=== PATIENT | male | born 1960 | race Caucasian/White ===

== ENCOUNTER → 2019-07-09 08:26 | Outpatient (BNVA) | payer SELFPAY | PROVIDERS: PCP Nurse Practitioner Family; Visit Provider Nurse Practitioner Family | DX: R39.9 Unspecified symptoms and signs involving the genitourinary system (principal); M79.89 Other specified soft tissue disorders; W57.XXXA Bitten or stung by nonvenomous insect and other nonvenomous arthropods, initial encounter; I82.409 Acute embolism and thrombosis of unspecified deep veins of unspecified lower extremity; M79.605 Pain in left leg; B35.1 Tinea unguium; R53.83 Other fatigue; R31.9 Hematuria, unspecified | CPT/HCPCS: 80053; 81000; 87077; 87086; 87186 ==

== ENCOUNTER → 2019-07-29 13:32 | Outpatient (BNVA) | payer SELFPAY | PROVIDERS: PCP Nurse Practitioner Family; Visit Provider Nurse Practitioner Family | DX: E87.1 Hypo-osmolality and hyponatremia (principal); N39.0 Urinary tract infection, site not specified; L03.90 Cellulitis, unspecified | CPT/HCPCS: 80048; 80053; 81000; 87077; 87086; 87186 ==

== ENCOUNTER → 2019-09-17 16:26 | Outpatient (BNVA) | payer SELFPAY | PROVIDERS: PCP Nurse Practitioner Family; Visit Provider Nurse Practitioner Family | DX: R23.2 Flushing (principal) | CPT/HCPCS: 80048; 84403; 85025 ==

== ENCOUNTER → 2019-09-23 13:31 | Outpatient (BNVA) | payer SELFPAY | PROVIDERS: PCP Nurse Practitioner Family; Visit Provider Nurse Practitioner Family | DX: R53.83 Other fatigue (principal); E87.1 Hypo-osmolality and hyponatremia | CPT/HCPCS: 80048; 84443 ==

== ENCOUNTER → 2019-10-07 09:28 | Outpatient (BNVA) | payer SELFPAY | PROVIDERS: PCP Nurse Practitioner Family; Visit Provider Nurse Practitioner Family | DX: N30.00 Acute cystitis without hematuria (principal); E87.1 Hypo-osmolality and hyponatremia; G62.9 Polyneuropathy, unspecified | CPT/HCPCS: 81000 ==

== ENCOUNTER 2019-10-16 10:49 | Emergency (ER) | payer SELFPAY ==
[2019-10-16 11:44] VITALS: BP 142/88; PULSE 89; RESP 20; TEMP 36.7; O2SAT 96; BMI 23.0
[2019-10-16 13:26] LABS: Basophils % 0.4 %; Eosinophils # 0.1 10^3/uL (0.0-0.8); Eosinophils % 0.9 %; Hematocrit 45.9 % (42.0-52.0); Hemoglobin 15.7 g/dL (11.7-16.6); Lymphocytes # 1.7 10^3/uL (0.8-4.8); Lymphocytes % 21.6 %; Mean Corpuscular HGB Conc 34.2 g/dL (30.0-36.0); Mean Corpuscular Hemoglobin 31.5 pg (28.0-34.0); Mean Platelet Volume 8.9 fL (7.4-10.4); Monocytes # 0.6 10^3/uL (0.2-0.9); Monocytes % 7.5 %; Neutrophils # 5.36 10^3/uL (1.8-7.7); Neutrophils % 69.5 %; Nucleated Red Blood Cells % 0 %; Platelet Count 264 10^3/cmm (130-400); Red Blood Count 4.99 10^6/uL (4.1-5.3); Red Cell Distribution Width 13.8 % (12.1-15.1); White Blood Count 7.7 10^3/uL (4.0-10.0)
--- NOTE | 2019-10-16 13:58 | ED_ITS ---
HPI - Male Genitourinary General: Chief complaint: Urogenital-Male Stated complaint: abd pain/back pain Time Seen by Provider: 10/16/19 13:58 Source: patient Mode of arrival: ambulatory Limitations: no limitations History of Present Illness: HPI Narrative: Patient is a 59-year-old male who presents to ED today with a main complaint of trouble urinating. Patient tells me symptoms of been present over the past week or so. He was evaluated at [facility] on 10/10 and had labs, UA, CT of his abdomen and pelvis performed. He was discharged home with a prescription for Keflex for UTI. Patient tells me he does have a history of BPH. He has never seen a urologist previously. Patient tells me he was able to urinate while waiting in the waiting room. He is not complaining of dysuria, penile discharge, testicular pain/swelling. He is not complaining of abdominal pain or flank pain at this time. No fevers. Onset (ago): day(s) Duration: constant Associated symptoms: Deny nausea or vomiting Review of Systems Const: Denies: fever(s), chills, body aches, fatigue or malaise Card: Denies: chest pain Resp: Denies: dyspnea GI: Denies: abdominal pain, nausea, vomiting or diarrhea : Reports: difficulty urinating, urinary dribbling and difficulty starting urination; Denies: flank pain, urinary frequency, urinary urgency, urinary hesitancy, genital pain, genital lesions, penile discharge, testicular pain, testicular mass or scrotal swelling Musc: Denies: neck pain or back pain Skin/Breast: Denies: rash Neuro: Denies: headache(s), numbness in extremities, weakness in extremities or sensory changes ON LICENSE OF [facility] ED PFSH: Medical History (Updated 10/16/19 @ 17:06 by BARBARA Barclay) Neuropathy Social History Smoking and tobacco status: current every day smoker Physical Exam Const: COMMON NORMALS: patient oriented x3, no limitations and alert GENERAL APPEARANCE: cooperative and disheveled ORIENTATION/CONSCIOUSNESS: Yes oriented to person, Yes oriented to place and Yes oriented to time HENMT: COMMON NORMALS: normocephalic and atraumatic HEAD & SCALP: normocephalic and atraumatic Resp: COMMON NORMALS: normal respiratory effort and clear to auscultation bilaterally AUSCULTATION: clear to auscultation bilaterally Cardio: COMMON NORMALS: regular rate and regular rhythm RATE: regular rate RHYTHM: regular rhythm GI: COMMON NORMALS: Normal to inspection, nondistended, normoactive bowel sounds present, Soft to palpation, non-tender, No hepatosplenomegaly present and no masses PALPATION: Yes Soft to palpation and Yes No hepatosplenomegaly present : COMMON NORMALS: Yes no CVA tenderness BLADDER/KIDNEY EXAM: Yes no CVA tenderness Back/Pelvis: COMMON NORMALS: no CVA tenderness Extremity: OTHER: pts L LE is swollen compared to R; he has redness to the lateral edge of foot; DP/PT pulses intact and equal bilaterally Neuro: COMMON NORMALS: patient oriented x3, moves all extremities, no focal motor deficits and no sensory deficits noted SENSORIUM/ORIENTATION: Yes alert, Yes oriented to person, Yes oriented to place and Yes oriented to time Course ED course: Records from [facility] were obtained for patient's visit on 10/10. It appears at that visit patient was complaining of bilateral flank pain. His UA was not suspicious for a UTI however due to the right flank pain they placed him on Keflex. Remainder of patient's labs looked okay. Sodium was mildly low at 126. CT abdomen/pelvis without contrast showing left renal cyst. No hydronephrosis. Sequela of chronic pancreatitis. Gallbladder sludge and/or noncalcified stones. Mild hepatomegaly and small left lobe cyst. Moderate fecal burden throughout the colon which may reflect constipation. Vital Signs: Vital signs: Vital Signs Temperature 98.7 F 10/16/19 17:09 Pulse Rate 92 10/16/19 17:09 Respiratory Rate 16 10/16/19 17:09 Blood Pressure 114/84 10/16/19 17:09 Pulse Oximetry 96 10/16/19 17:09 MDM - Male MDM Narrative: Medical decision making narrative: Again patient tells me he is able to urinate-it is just difficult. Patient's UA here looks clear. Remainder of labs overall are non-concerning apart from his sodium of 122. He is chronically low on this. He is asymptomatic at this time. Recommend he follow- up with his PCP Dr. Holguin for further evaluation. Patient is wanting to go home at this time. We will place information with case management to get him set up with Dr. Vargas for the difficulty with urination. There is not any indication for further work-up or repeat imaging today. Again patient CT scan performed on 10/10 did not show any emergent process. Lab Data: Labs: Lab Results 10/16/19 10/16/19 10/16/19 Range/Units 13:15 13:15 16:17 WBC 7.7 (4.0-10.0) 10^3/ uL RBC 4.99 (4.1-5.3) 10^6/u L Hgb 15.7 (11.7-16.6) g/dL Hct 45.9 (42.0-52.0) % MCV 92.0 (80-94) fL MCH 31.5 (28.0-34.0) pg MCHC 34.2 (30.0-36.0) g/dL RDW 13.8 (12.1-15.1) % Plt Count 264 (130-400) 10^3/c mm MPV 8.9 (7.4-10.4) fL Neut % (Auto) 69.5 % Lymph % (Auto) 21.6 % [place] % (Auto) 7.5 % Eos % (Auto) 0.9 % Baso % (Auto) 0.4 % Neut # (Auto) 5.36 (1.8-7.7) 10^3/u L Lymph # (Auto) 1.7 (0.8-4.8) 10^3/u L [place] # (Auto) 0.6 (0.2-0.9) 10^3/u L Eos # (Auto) 0.1 (0.0-0.8) 10^3/u L Baso # (Auto) 0.0 (0.0-0.1) 10^3/u L Nucleated RBC % (a uto) 0 % Nucleated RBCs # 0.0 /100WBC Sodium 122 L (136-145) mmol/L Potassium 4.3 (3.5-5.1) mmol/L Chloride 87 L (98-107) mmol/L Carbon Dioxide 27 (22-29) mmol/L Anion Gap 12.3 (5-19) BUN 21 H (6-20) mg/dL Creatinine 0.9 (0.7-1.2) mg/dL GFR Calculation 86.4 L (90-130) mL/min Glucose 119 H (65-115) mg/dL Calculated Osmolal ity 252 L (285-295) mOsm/k g Calcium 9.5 (8.5-10.5) mg/dL Total Bilirubin 0.7 (0.15-1.2) mg/dL AST 25 (0-40) U/L ALT 26 (0-41) U/L Alkaline Phosphata se 84 (40-130) IU/L Total Protein 7.9 (6.6-8.7) g/dL Albumin 4.4 (3.5-5.2) g/dL Globulin 3.5 (1.3-4.6) g/dL Lipase 38 (13-60) U/L Urine Color Yellow (Yellow) Urine Appearance Clear (CLEAR) Urine pH 5 (5-7) Ur Specific Gravit y 1.015 (1.005-1.030) Urine Protein Neg (Negative) Urine Glucose (UA) Norm (Normal) Urine Ketones Negative (Negative) Urine Blood 2+ H (Negative) Urine Nitrate Negative (Negative) Urine Bilirubin Neg (NEGATIVE) Urine Urobilinogen Neg (Negative) mg/dL Ur Leukocyte Bere ase Negative (Negative) Urine RBC 0-4 H (0-2) /hpf Urine WBC None (0-5) /hpf Ur Squamous Epith Cells None (0-5) Amorphous Sediment Not Reportable Urine Bacteria Trace (NONE) Imaging Data: L LE venous US: Radiologist's impression: [place] [address] Ultrasound Report Signed Patient: Eldon Duran #: [id number] : 1Acct#:[id number] Age/Sex: 59 / MADM Date: 10/16/19 Loc: ERRoom/Bed: Attending Dr: Ordering Provider/Ordering MD: Latisha Mcmillan Date of Service: 10/16/19 Procedure(s): [place] [address] Accession Number(s): [id number] Report Number: [id number] Jonathan Duran Age: 59 Gender: M : 1960 Exam Date: 10/16/2019 14:56 Ordering Phys: Latisha Mcmillan Technologist: Gerardo Ward Exam Location: [facility] [place]_ Indication: SWELLING,REDNESS HISTORY: Lower extremity swelling. PROCEDURES: Venous duplex imaging was performed in only the left lower extremity. The following venous structures were evaluated: common femoral vein, profunda vein, proximal portion of the greater saphenous vein, superficial femoral vein, and the popliteal vein. In addition, the posterior tibial and peroneal trunk were evaluated. Serial compression, augmentation maneuvers, and spectral Doppler flow evaluation were performed. FINDINGS: Normal 2-D Doppler and augmentation and compressibility throughout the lower extremity venous structures. Additional imaging through the proximal calf veins also reveals no thrombus. Limited evaluation of the greater saphenous vein is patent with no thrombus. CONCLUSIONS No DVT left lower extremity. Dr. Batool Crenshaw DO (Electronically Signed) Final Date: 16 October 2019 15:35 S Discharge Plan Discharge Patient Disposition: Home Clinical Impression: Difficulty urinating, Chronic hyponatremia, History of BPH Condition: Stable Prescriptions: No Action cephalexin 500 mg Capsule 500 mg PO TID RF: 0 tamsulosin 0.4 mg Capsule 0.4 mg PO DAILY RF: 0 sodium chloride 1 gram tablet 1 g PO DAILY RF: 0 gabapentin 300 mg Capsule 300 mg PO BID RF: 0 Macrobid 100 mg capsule 100 mg PO Q12H RF: 0 Discharge Orders: Discharge Order (Routine); Ordered 10/16/19 Ordered By: Latisha Mcmillan Referrals: Nikhil Vargas MD [Physician] - Activity Restrictions/Additional Instructions: As discussed case management should contact you tomorrow and set you up with an appointment to see Dr. Vargas evaluation of your difficulty urinating. You need to return to the emergency department immediately for any acute urinary ret ention/not being able to urinate. As discussed please follow-up with your primary care provider Dr. Holguin for your low sodium. Discharge Date/Time: 10/16/19 17:20 Coding Level of Care Code ED [employer] Agent for Chg Fwd Exam Detailed
[2019-10-16 14:12] LABS: Alanine Aminotransferase 26 U/L (0-41); Albumin Level 4.4 g/dL (3.5-5.2); Alkaline Phosphatase 84 IU/L (40-130); Anion Gap 12.3 (5-19); Aspartate Amino Transferase 25 U/L (0-40); Blood Urea Nitrogen 21 mg/dL (6-20); Calcium 9.5 mg/dL (8.5-10.5); Carbon Dioxide 27 mmol/L (22-29); Chloride 87 mmol/L (98-107); Creatinine Clr Calc Pharmacy 96.7555; Globulin 3.5 g/dL (1.3-4.6); Glomerular Filtration Rate 86.4 mL/min (90-130); Glucose 119 mg/dL (65-115); Lipase 38 U/L (13-60); Osmolality Calculated 252 mOsm/kg (285-295); Potassium 4.3 mmol/L (3.5-5.1); Sodium 122 mmol/L (136-145); Total Bilirubin 0.7 mg/dL (0.15-1.2); Total Protein 7.9 g/dL (6.6-8.7)
[2019-10-16 14:16] VITALS: BP 137/95; PULSE 94; RESP 18
--- NOTE | 2019-10-16 14:56 | USCV_ITS ---
Jonathan Duran Age: 59 Gender: M : 1960 Exam Date: 10/16/2019 14:56 Ordering Phys: Latisha Mcmillan Technologist: Gerardo Ward Exam Location: [facility] [place] Indication: SWELLING,REDNESS HISTORY: Lower extremity swelling. PROCEDURES: Venous duplex imaging was performed in only the left lower extremity. The following venous structures were evaluated: common femoral vein, profunda vein, proximal portion of the greater saphenous vein, superficial femoral vein, and the popliteal vein. In addition, the posterior tibial and peroneal trunk were evaluated. Serial compression, augmentation maneuvers, and spectral Doppler flow evaluation were performed. FINDINGS: Normal 2-D Doppler and augmentation and compressibility throughout the lower extremity venous structures. Additional imaging through the proximal calf veins also reveals no thrombus. Limited evaluation of the greater saphenous vein is patent with no thrombus. CONCLUSIONS No DVT left lower extremity. Dr. Batool Crenshaw DO (Electronically Signed) Final Date: 16 October 2019 15:35 Amended: 16 October 2019 15:39 C
[2019-10-16] MEDS: sodium chloride 0.9% 1,000 ML 500 ML IV (15:01)
[2019-10-16 15:51] VITALS: BP 122/83; PULSE 92; RESP 18; O2SAT 97
[2019-10-16 16:59] LABS: Add Urine Microscopic? YES; Bilirubin Urine Neg (NEGATIVE); Blood Urine 2+ (Negative); Glucose Urine UA Norm (Normal); Ketones Urine Negative (Negative); Leukocyte Esterase Urine Negative (Negative); Nitrate Urine Negative (Negative); Protein Urine Neg (Negative); Specific Gravity, Urine 1.015 (1.005-1.030); Urine Appearance Clear (CLEAR); Urine Color Yellow (Yellow); Urobilinogen Urine Neg (Negative); pH Urine 5 (5-7)
[2019-10-16 17:00] LABS: Add Urine Culture? No; Bacteria Urine TRACE; RBC Urine 0-4 /hpf (0-2)
[2019-10-16 17:09] VITALS: BP 114/84; PULSE 92; RESP 16; TEMP 37.1; O2SAT 96
--- NOTE | 2019-10-17 10:14 | DCPLANNER ---
confectionery laboratory manager had message to schedule a follow up appointment for patient with Dr. Vargas. confectionery laboratory manager called the office of Dr. Vargas, spoke with Lulu, gave clinic patients information. confectionery laboratory manager was told that patients information would be printed and reviewed. Clinic will call patient with appointment information.
--- NOTE | 2019-10-18 08:16 | DCPLANNER ---
Patient has a follow up appointment scheduled for Monday, November 11, 2019 at 9:[address] Vargas.
--- NOTE | 2019-11-26 13:24 | DCPLANNER ---
Patient had a follow up appointment scheduled for 11.11.[address] Vargas - patient did attend appointment.
== END 2019-10-16 17:20 | disposition home or self-care (01) ==
PROVIDERS: Emergency Provider Physician Assistant; PCP Nurse Practitioner Family
DX: R39.198 Other difficulties with micturition (principal); E87.1 Hypo-osmolality and hyponatremia; N40.0 Benign prostatic hyperplasia without lower urinary tract symptoms; F17.210 Nicotine dependence, cigarettes, uncomplicated
CPT/HCPCS: 12345; 36415; 80053; 81001; 83690; 85025; 93971; 96360; 96361; 99282; 99283; J7030

== ENCOUNTER → 2019-11-11 08:22 | Outpatient (BNVA) | payer SELFPAY | PROVIDERS: PCP Nurse Practitioner Family; Visit Provider Urology | DX: R39.9 Unspecified symptoms and signs involving the genitourinary system (principal); Z12.5 Encounter for screening for malignant neoplasm of prostate; R33.8 Other retention of urine; N20.1 Calculus of ureter; N40.1 Benign prostatic hyperplasia with lower urinary tract symptoms; N20.9 Urinary calculus, unspecified | CPT/HCPCS: 81001; 82365 ==

== ENCOUNTER → 2020-01-23 13:22 | Outpatient (BNVA) | payer SELFPAY | PROVIDERS: PCP Nurse Practitioner Family; Visit Provider Nurse Practitioner Family | DX: R10.9 Unspecified abdominal pain (principal) | CPT/HCPCS: 81000 ==

== ENCOUNTER → 2020-01-30 14:07 | Outpatient (BNVA) | payer OTHER, SELFPAY | PROVIDERS: PCP Nurse Practitioner Family; Visit Provider Nurse Practitioner Family | DX: Z11.59 Encounter for screening for other viral diseases (principal); N39.0 Urinary tract infection, site not specified; E87.1 Hypo-osmolality and hyponatremia | CPT/HCPCS: 80048; 81000; 87635 ==

== ENCOUNTER 2020-02-05 07:39 | Day surgery (SDC) | payer SELFPAY ==
[2020-02-03 13:24] VITALS: BMI 23.7
[2020-02-05 08:00] VITALS: BP 108/74; PULSE 107; RESP 18; TEMP 36.6; O2SAT 98
--- NOTE | 2020-02-05 08:10 | ANES.PREANE2 ---
Pre-Anesthetic Assessment Pre-Anesthetic Assessment: Height/Weight: Height 1.83 m Weight 79.379 kg Temp Pulse Resp BP Pulse Ox 98 F 107 H 18 108/74 98 02/05/20 08:00 02/05/20 08:00 02/05/20 08:00 02/05/20 08:00 02/05/20 08:00 Preop Diagnosis: Constipation Proposed Procedure: Operation Date: 02/05/20 08:45 Proposed Procedures p Colonoscopy 18995 K59.00(Not Applicable) - Rodrigo Esquivel MD Familial anesthetic complications: None Was Beta Yessi taken within 24 hours: N/A Last intake: Intake Last Liquid Date 02/04/20 Last Liquid Time 22:00 Last Solid Date 02/03/20 Social: Social History: Tobacco and No alcohol Exam: Pre-Anes Outpt Exam: alert, oriented x 3, clear to auscultation bilaterally and regular rate & rhythm Additional Exam Findings (including area of procedure): coarse breath sounds R> L Airway: Cervical ROM: WNL MP: 2 Dentition: Other (no teeth) Pulmonary: Pulmonary: COPD Anesthetic Plan: ASA status: 3 Anesthesia: MAC Risk of > 500 ml blood loss (7ml/kg in children): No PFSH Anesthesia PFSH: Medical History BPH loc w urin obs/LUTS COPD (chronic obstructive pulmonary disease) Neuropathy Urolithiasis Passed a stone (probable prostatic) October 2019. No other stone seen on recent CT scan Surgical History Hx of hernia repair Family History Father Cancer Social History Smoking and tobacco status: current every day smoker Alcohol intake: current Alcohol intake frequency: 0-2 Drinks per Day Adopted: No Caregiver/support person: No Lives independently: No Household members: significant other Marital status: Life Partner Current occupational status: employed Data Anesthesia Cardiac Studies: No Data to Display
[2020-02-05] MEDS: sodium chloride 0.9% 1,000 ML 30 ML IV (08:11)
--- NOTE | 2020-02-05 08:16 | W.PM.OPSUD ---
Surgery/Procedure H&P Update DATE OF PROCEDURE: February 05, 2020 DATE H&P PERFORMED: 01/30/20 H&P UPDATE INFORMATION: I have reviewed H&P completed within last 30 days, I have examined patient prior to procedure and No changes to prior documentation PREOP DIAGNOSIS: Constipation PRIMARY INDICATION FOR PROCEDURE: The same PLANNED PROCEDURE: Operation Date: 02/05/20 08:45 Proposed Procedures p Colonoscopy 15195 K59.00(Not Applicable) - Rodrigo Esquivel MD
[2020-02-05 08:50] VITALS: BP 104/70; PULSE 78; RESP 18; TEMP 37.1; O2SAT 100
[2020-02-05 09:08] VITALS: BP 105/76; PULSE 81; RESP 16; O2SAT 99
== END 2020-02-05 09:20 | disposition home or self-care (01) ==
PROVIDERS: PCP Nurse Practitioner Family; Visit Provider Surgery
PROC: 0DJD8ZZ Inspection of Lower Intestinal Tract, Via Natural or Artificial Opening Endoscopic (ICD-10-PCS; CPT 45378; principal; 2020-02-05 08:45)
DX: K59.00 Constipation, unspecified (principal); E87.1 Hypo-osmolality and hyponatremia; N39.0 Urinary tract infection, site not specified; J44.9 Chronic obstructive pulmonary disease, unspecified; N40.1 Benign prostatic hyperplasia with lower urinary tract symptoms; G62.9 Polyneuropathy, unspecified; Z80.9 Family history of malignant neoplasm, unspecified; F17.200 Nicotine dependence, unspecified, uncomplicated
CPT/HCPCS: 12345; 45378; J2704; J7030

== ENCOUNTER → 2020-05-12 14:27 | Outpatient (BNVA) | payer SELFPAY | PROVIDERS: PCP Nurse Practitioner Family; Visit Provider Nurse Practitioner Family | DX: M54.9 Dorsalgia, unspecified (principal); R79.9 Abnormal finding of blood chemistry, unspecified | CPT/HCPCS: 80053; 81000 ==

== ENCOUNTER → 2020-05-18 08:28 | Outpatient (BNVA) | payer SELFPAY | PROVIDERS: PCP Nurse Practitioner Family; Visit Provider Nurse Practitioner Family | DX: N39.0 Urinary tract infection, site not specified (principal) | CPT/HCPCS: 81000 ==

== ENCOUNTER → 2020-06-12 10:48 | Outpatient (BNVA) | payer SELFPAY | PROVIDERS: PCP Nurse Practitioner Family; Visit Provider Nurse Practitioner Family | DX: N40.1 Benign prostatic hyperplasia with lower urinary tract symptoms (principal); N30.00 Acute cystitis without hematuria | CPT/HCPCS: 81000 ==

== ENCOUNTER → 2020-06-17 10:41 | Outpatient (BNVA) | payer SELFPAY | PROVIDERS: PCP Nurse Practitioner Family; Visit Provider Nurse Practitioner Family | DX: N39.0 Urinary tract infection, site not specified (principal) | CPT/HCPCS: 81000 ==

== ENCOUNTER → 2020-07-23 08:50 | Outpatient (BNVA) | payer SELFPAY | PROVIDERS: PCP Nurse Practitioner Family; Visit Provider Surgery | DX: K40.90 Unilateral inguinal hernia, without obstruction or gangrene, not specified as recurrent (principal); Z20.822 Contact with and (suspected) exposure to COVID-19 | CPT/HCPCS: 87635 ==

== ENCOUNTER 2020-07-29 06:07 | Day surgery (SDC) | payer SELFPAY ==
[2020-07-28 14:28] VITALS: BMI 20.8
[2020-07-29 06:45] VITALS: BP 150/92; PULSE 71; RESP 18; TEMP 36.8; O2SAT 99
--- NOTE | 2020-07-29 06:54 | W.PM.OPSUD ---
Surgery/Procedure H&P Update DATE OF PROCEDURE: July 29, 2020 DATE H&P PERFORMED: 07/17/20 H&P UPDATE INFORMATION: I have reviewed H&P completed within last 30 days, I have examined patient prior to procedure and No changes to prior documentation PREOP DIAGNOSIS: Recurrent left inguinal hernia PLANNED PROCEDURE: Operation Date: 07/29/20 08:10 Proposed Procedures p LAP POSS OPEN LEFT INGUINAL HERNIA REPAIR WITH MESH 91509 k40.90(Left) - Benigno Severino MD
--- NOTE | 2020-07-29 06:57 | ANES.PREANE2 ---
Pre-Anesthetic Assessment Pre-Anesthetic Assessment: Height/Weight: Height 1.96 m Weight 79.832 kg Preop Diagnosis: Recurrent left inguinal hernia Proposed Procedure: Operation Date: 07/29/20 08:10 Proposed Procedures p LAP POSS OPEN LEFT INGUINAL HERNIA REPAIR WITH MESH 05644 k40.90(Left) - Benigno Severino MD Was Beta Yessi taken within 24 hours: N/A Was Clonidine taken within 24 hours: N/A Last intake: Intake Last Liquid Date 07/28/20 Last Liquid Time 20:00 Last Solid Date 07/28/20 Last Solid Time 20:00 Social: Social History: Tobacco and No alcohol Exam: Pre-Anes Outpt Exam: alert, oriented x 3 and regular rate & rhythm Additional Exam Findings (including area of procedure): rhonchi Airway: Submandibular: WNL Cervical ROM: WNL MP: 1 Dentition: False Pulmonary: Pulmonary: COPD and Cough Neuropsych: Neuropsych: Neuropathy Anesthetic Plan: ASA status: 3 Anesthesia: General Risk of > 500 ml blood loss (7ml/kg in children): No PFSH Anesthesia PFSH: Medical History (Updated 07/28/20 @ 14:34 by Caleb Malave RN) BPH loc w urin obs/LUTS Constipation Repeat screening colonoscopy in 10 years COPD (chronic obstructive pulmonary disease) Hx pulmonary embolism Neuropathy Urolithiasis Passed a stone (probable prostatic) October 2019. No other stone seen on recent CT scan Surgical History Status post colonoscopy Status post left inguinal hernia repair Status post right inguinal hernia repair Family History Father Cancer Social History Smoking and tobacco status: current every day smoker Alcohol intake: former Adopted: No Caregiver/support person: No Lives independently: No Household members: significant other Marital status: Life Partner Current occupational status: employed History of recent travel: No Data Anesthesia Cardiac Studies: No Data to Display
[2020-07-29] MEDS: sodium chloride 0.9% 1,000 ML 30 ML IV (07:02)
--- NOTE | 2020-07-29 09:05 | P.OP_ITS ---
Operative Report Date of procedure: July 29, 2020 Pre-op Diagnosis: Recurrent left inguinal hernia Post-op Findings: Recurrent reducible indirect left inguinal hernia Procedure Done: Laparoscopic total extraperitoneal repair of reducible indirect left inguinal hernia with Surgimax 3D mesh Pathology: none sent Surgeon: Benigno Severino Anesthesia: General Condition: stable Disposition: PACU Procedure: The patient was taken to the operating room. After IV antibiotic was administered, the abdomen was prepped and draped in a sterile manner. Using a 15 blade, a 1.0 cm transverse incision was made infraumbilically on the left side. Subcutaneous tissue was divided using electrocautery and the anterior rectus sheath divided using an 11 blade. The rectus muscle was retracted laterally and the extraperitoneal space identified. A 11 mm port was placed and 12 mm of pneumoperitoneum was created. A 10 mm 30? scope was introduced and the retrorectus space was opened using the camera up to the pubic symphysis and 5 mm ports were placed in the midline, one 2-fingerbreadths above the pubic symphysis and the other midway between these two ports under direct visualization. Blunt dissection was carried out to open up the tissue in the midline and to the pubic symphysis, which was identified. The dissection was then carried laterally where the iliopubic tract was identified. There was no femoral, obturator or direct hernia noted. The inferior epigastric artery was identified and dissection was carried posterior to it and laterally, the space was opened up to the level of the umbilicus superior to the anterior superior iliac spine. I the n proceeded to dissect out the spermatic cord and the indirect hernial sac was reduced . 16 x 10cm Surgimax 3D mesh was rolled and introduced through the 10 mm port and then rolled laterally and apposed well against the abdominal wall to cover the myopectineal orifice completely. 10 Cc of 0.5% Marcaine was infiltrated into the preperitoneal space. The extraperitoneal space was desufflated under direct visualization to ensure no slippage of hernial sac under the mesh. All ports were removed, pneumoperitoneum was released by making a small opening in the posterior rectus sheath, the anterior rectus fascia at the infraumbilical port was closed using figure of eight 0 Vicryl sutures, subcutaneous tissue approximated using 3-0 Vicryl sutures and skin at all three port sites were closed using running subcuticular 4-0 Monocryl sutures and Dermabond. 10 mL of 0.5% Marcaine was infiltrated at the port sites. The patient was stable throughout the procedure.
[2020-07-29 09:15] VITALS: BP 133/95; PULSE 80; RESP 16; TEMP 36.1; O2SAT 96
[2020-07-29 09:20] VITALS: BP 150/85; PULSE 79; RESP 18; O2SAT 94
[2020-07-29 09:25] VITALS: BP 130/88; PULSE 77; RESP 16; TEMP 36.5; O2SAT 94
[2020-07-29 09:32] VITALS: BP 148/91; PULSE 87; RESP 18; O2SAT 95
[2020-07-29 09:44] VITALS: BP 126/92; PULSE 75; RESP 20; O2SAT 95
--- NOTE | 2020-07-29 13:36 | ANE.PACU2 ---
Inpatient post-anesthesia follow up: Airway intact: Yes Vital signs: Temperature 97.7 F Pulse Rate 75 Respiratory Rate 20 Blood Pressure 126/92 Pulse Oximetry 95 Oxygen Delivery Me thod Room Air Oxygen Flow Rate 8 Fraction of Inspir ed Oxygen Hydration adequate: Yes Nausea and vomiting: No Pain level: 2 Mental status: Baseline
== END 2020-07-29 09:55 | disposition home or self-care (01) ==
PROVIDERS: PCP Nurse Practitioner Family; Visit Provider Surgery
PROC: (CPT 49650; principal; 2020-07-29 08:10)
DX: K40.91 Unilateral inguinal hernia, without obstruction or gangrene, recurrent (principal); J44.9 Chronic obstructive pulmonary disease, unspecified; F17.210 Nicotine dependence, cigarettes, uncomplicated; N40.1 Benign prostatic hyperplasia with lower urinary tract symptoms; N13.8 Other obstructive and reflux uropathy; Z86.711 Personal history of pulmonary embolism
CPT/HCPCS: 49651; C1781; J0690; J1100; J2370; J2405; J2704; J2710; J3010; J3490; J7030

== ENCOUNTER → 2021-06-28 10:44 | Outpatient (BNVA) | payer SELFPAY | PROVIDERS: PCP Nurse Practitioner Family; Visit Provider Nurse Practitioner Family | DX: R05.9 Cough, unspecified (principal); E87.1 Hypo-osmolality and hyponatremia; M79.643 Pain in unspecified hand; F17.200 Nicotine dependence, unspecified, uncomplicated | CPT/HCPCS: 80053; 82607 ==

== ENCOUNTER → 2022-07-12 15:17 | Outpatient (BNVA) | payer MEDICARE, MEDICAID, SELFPAY | PROVIDERS: PCP Nurse Practitioner Family; Visit Provider Nurse Practitioner Family | DX: N39.0 Urinary tract infection, site not specified (principal); N40.1 Benign prostatic hyperplasia with lower urinary tract symptoms; E87.1 Hypo-osmolality and hyponatremia; E78.49 Other hyperlipidemia | CPT/HCPCS: 80053; 80061; 81000; 87086 ==

== ENCOUNTER → 2022-08-02 13:44 | Outpatient (BNVA) | payer MEDICAID, SELFPAY | PROVIDERS: PCP Nurse Practitioner Family; Visit Provider Nurse Practitioner Family | DX: N39.0 Urinary tract infection, site not specified (principal) | CPT/HCPCS: 81000; 87086 ==

== ENCOUNTER 2022-08-14 10:03 | Emergency (ER) | payer MEDICAID, SELFPAY ==
[2022-08-14 10:11] VITALS: BP 144/119; PULSE 80; RESP 16; O2SAT 100
--- NOTE | 2022-08-14 10:51 | CTR_ITS ---
PROCEDURE INFORMATION: Exam: CT Right Lower Extremity Without Contrast, Knee Exam date and time: 08/14/2022 10:57 AM Age: 62 years old Clinical indication: Pain and injury or trauma; Fall; Blunt trauma; Knee; Right; Additional info: Pain, ecchymosis, swelling TECHNIQUE: Imaging protocol: CT of the right lower extremity without contrast was performed. Exam focused on the knee. Radiation optimization: All CT scans at this facility use at least one of these dose optimization techniques: automated exposure control; mA and/or kV adjustment per patient size (includes targeted exams where dose is matched to clinical indication); or iterative reconstruction. REPORTING DATA: Count of CT and Cardiac NM exams in prior 12 months: This patient has received 0 known CTs and 0 known cardiac nuclear medicine studies in the 12 months prior to the current study. COMPARISON: No relevant prior studies available. RADIATION DOSE METRICS: Total DLP (mGy-cm): 406.19 FINDINGS: Bones/joints: No joint effusion. No sign of intra-articular bleeding. No acute fracture. There is moderate medial compartment joint space narrowing and tricompartmental osteophytes. There is slight medial subluxation of the femur relative to the tibia. There are small patellofemoral osteophytes. Soft tissues: There is marked fatty atrophy of the distal aspect of the medial head of the gastrocnemius muscle which is incompletely imaged. Visible musculature in the distal thigh is unremarkable. There is diffuse subcutaneous edema anterior to the knee. There is a subcutaneous hematoma anterior and anterolateral to the knee measuring 10.9 cm in length and up to 8.3 x 4.2 cm axial dimension. The hematoma is located anterior to the intact quadriceps tendon. In addition to the hematoma there is unencapsulated high attenuation material anterior inferior to the knee consistent with blood products. Vasculature: There are superficial and deep varicose veins in the posterior thigh, calf and in the popliteal fossa. CT/CT knee RT wo con* [id number] IMPRESSION: 1. No fracture. No joint effusion. 2. Subcutaneous edema and bleeding anterior to the knee with hematoma measuring approximately 170 cc. 3. 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
--- NOTE | 2022-08-14 10:52 | W.ED.EXTPRO ---
HPI - Extremity Problem General: Chief complaint: Extremity Injury, Lower Stated complaint: Rt knee pain /Fall Time Seen by Provider: 08/14/22 10:26 History of Present Illness: Patient is a 62-year-old man that presents to the emergency department by EMS with reports of right knee pain, swelling, ecchymosis and blistering. Onset of symptoms last night when he fell from standing landing on his right knee. Patient denies wrecking his head or LOC. He reports that he has chronic issues with ambulation due to neuropathy. He denies any other extremity, muscle, joint pain. Patient has medical history COPD, neuropathy, hypertension, BPH Associated symptoms: Deny chest pain or fever(s) Review of Systems General: Reports: 10 or more systems reviewed and unremarkable except in HPI and below Const: Denies: fever(s), chills, change in appetite, change in weight, fatigue or malaise Eyes: Denies: change in vision, eye discomfort, eye discharge or eye redness ENMT: Denies: throat pain, enlarged tonsils, odynophagia, hoarseness, ear or mastoid pain, ear discharge, change in hearing, tinnitus, nasal discharge, nasal congestion, post nasal drip or sinus pain Card: Denies: chest pain, palpitations, irregular heart rhythm, edema, dyspnea on exertion, orthopnea or leg pain with exertion Resp: Denies: dyspnea, productive cough, non-productive cough, wheezing, stridor or chest congestion GI: Denies: abdominal pain, nausea, vomiting, dysphagia, diarrhea, constipation, bloating, GI cramping or hematochezia : Denies: flank pain, dysuria, urinary frequency, urinary urgency, urinary hesitancy, oliguria or hematuria Musc: Reports: extremity pain, joint pain, joint swelling and joint stiffness; Denies: neck pain, back pain, joint redness, joint warmth or muscle weakness Neuro: Denies: headache(s), numbness in extremities, weakness in extremities, sensory changes, lack of coordination, difficulty walking, frequent falls, dizziness, confusion, Slurred speech present, difficulty communicating thoughts, seizure-like activity or involuntary movements Endo: Denies: polyuria, polydipsia or tired all the time Rustam/Lymph: Denies: easy bruising or easy bleeding PFSH ED PFSH: Medical History BPH loc w urin obs/LUTS Constipation Repeat screening colonoscopy in 10 years COPD (chronic obstructive pulmonary disease) Hx pulmonary embolism Hypertension resolved. Neuropathy Urolithiasis Passed a stone (probable prostatic) October 2019. No other stone seen on recent CT scan Surgical History Status post colonoscopy Status post left inguinal hernia repair Status post left inguinal hernia repair (07/29/20) Recurrent Status post right inguinal hernia repair Family History Father Cancer Social History Smoking and tobacco status: current every day smoker Alcohol intake: former Substance/Drug Use: unknown Adopted: No Caregiver/support person: No Lives independently: No Household members: significant other Marital status: Life Partner Current occupational status: employed Physical Exam Const: COMMON NORMALS: no acute distress, patient oriented x3 and alert GENERAL APPEARANCE: cooperative ORIENTATION/CONSCIOUSNESS: Yes awake, Yes oriented to person, Yes oriented to place and Yes oriented to time HENMT: COMMON NORMALS: normocephalic and atraumatic HEAD & SCALP: normocephalic and atraumatic FACE & SINUS: normal facial exam MOUTH: Normal oral and palatal mucosa present THROAT: posterior oropharynx normal Eye: COMMON NORMALS: Equal, round and reactive pupils present, EOMs intact bilaterally, conjunctivae normal and no scleral icterus GENERAL EYE: appearance normal, both eyes and all related structures ALIGNMENT: Yes alignment normal PERIORBITAL: periorbital findings normal CONJUNCTIVA: Yes conjunctivae normal PUPIL: Yes Equal, round and reactive pupils present Neck/C-Spine: COMMON NORMALS: full ROM GENERAL: Yes normal visual inspection Lymph: LYMPHATIC: no lymphadenopathy noted Chest: COMMONS NORMALS: normal inspection of the chest Breast/axilla inspection: Yes no chest deformity, asymmetry, normal contours, no nodules, masses, tenderness Resp: COMMON NORMALS: normal respiratory effort, No retractions, No use of accessory muscles and clear to auscultation bilaterally EFFORT & INSPECTION: Yes able to speak in complete sentences and Yes symmetric chest movement AUSCULTATION: clear to auscultation bilaterally Cardio: COMMON NORMALS: regular rate, regular rhythm and Peripheral pulses 2+ throughout RATE: regular rate RHYTHM: regular rhythm PERIPHERAL PULSES: Peripheral pulses 2+ throughout GI: COMMON NORMALS: Normal to inspection, nondistended, normoactive bowel sounds present, Soft to palpation, non-tender and No hepatosplenomegaly present INSPECTION: Yes normal to inspection AUSCULTATION: Yes normoactive bowel sounds PALPATION: Yes Soft to palpation and Yes No hepatosplenomegaly present RECTAL EXAM: Yes deferred Extremity: NARRATIVE EXTREMITY EXAM: Right lower extremity: Skin is dry and dirty. Right knee swelling, ecchymosis, blistering noted. No open wounds. Patient is able to do a straight leg raise Patient is able to flex the knee to 90 degrees Patient is able to dorsiflex and plantarflex Sensations intact to light touch throughout the extremity and into the medial, lateral, dorsal, plantar surface of the foot and first webspace DP pulses are palpable and cap refill is less than 3 seconds Neuro: COMMON NORMALS: patient oriented x3 SENSORIUM/ORIENTATION: Yes alert, Yes oriented to person, Yes oriented to place and Yes oriented to time CRANIAL NERVES: Yes CN normal except as noted Psych: COMMON NORMALS: mental status grossly normal, Normal thought process present, cooperative, activity/motor behavior normal, denies homicidal ideation and denies suicidal ideation THOUGHT PROCESS: Normal thought process present Skin: COMMON NORMALS: no rashes or lesions noted, no wounds and turgor normal GENERAL SKIN EXAM: no rashes or lesions noted and turgor normal Course Vital Signs: Vital signs: Vital Signs Pulse Rate 80 08/14/22 10:11 Respiratory Rate 16 08/14/22 10:11 Blood Pressure 144/119 08/14/22 10:11 Pulse Oximetry 100 08/14/22 10:11 Oxygen Delivery Me thod Room Air 08/14/22 10:11 MDM - Extremity (Nontraumatic) Medical Decision Making Parental diagnosis include fracture, dislocation, hemarthrosis CT of the right knee was completed which revealed no fractures, no joint effusion. There is subcutaneous edema and bleeding anterior to the knee with a hematoma measuring approximately 170 cc. He has tricompartmental osteoarthritis greatest in the medial compartment. I am going to have him follow-up with orthopedics outpatient. In time he is to use RICE and nonsteroidal anti-inflammatory medications. Lab Data Radiology Impressions Knee CT 08/14/22 10:51 IMPRESSION: 1. No fracture. No joint effusion. 2. Subcutaneous edema and bleeding anterior to the knee with hematoma measuring approximately 170 cc. 3. 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 Discharge Plan Discharge Patient Disposition: Home Clinical Impression: Hematoma, Osteoarthritis Condition: Stable Prescriptions: New naproxen sodium 375 mg tablet, ER multiphase 24 hr 375 mg PO .Twice daily Qty: 20 0RF No Action acetaminophen [Tylenol Extra Strength] 500 mg tablet 500 mg PO Q6H PRN (Reason: Pain) docusate sodium [Colace] 100 mg capsule 100 mg PO BID Discharge Orders: Discharge ED (Routine); Ordered 08/14/22 Ordered By: Micheal Marques Referrals: Stella Douglas FNP [Primary Care Provider] - Patient Instructions: Osteoarthritis (ED), Knee Pain (ED), Hematoma (ED), Pain Management Activity Restrictions/Additional Instructions: You may bear weight on the extremity. RICE?use rest, ice, elevation, compression to help with pain and swelling. You can also use Tylenol and nonsteroidal anti-inflammatory drugs like ibuprofen. I have provided a prescription for a nonsteroidal anti-inflammatory drug?it is called naproxen. Please do not take additional ibuprofen Motrin or Aleve while taking this medication. Please return to the emergency department for new concerning or worsening symptoms Coding Level of Care Code ED Garment Tag Stringer for Jie Zhou
[2022-08-14] MEDS: ketorolac 30 mg/mL INJ IM (11:47)
--- NOTE | 2022-08-15 09:06 | DCPLANNER ---
Addendum entered by Vikki Lin 08/16/22 09:13: manager of organizational development received the following message from the ortho clinic regarding follow up appointment: attempt made to contact patient - number not accepting msgs/mailed letter to call our clinic to schedule w/ dr sutton Original Note: manager of organizational development had message to schedule a follow up appointment for patient with ortho. manager of organizational development sent patients information to the front office staff at ortho. Patients information will be printed and reviewed. Clinic will call patient with appointment information.
== END 2022-08-14 11:54 | disposition home or self-care (01) ==
PROVIDERS: Emergency Provider Nurse Practitioner; PCP Nurse Practitioner Family
DX: S80.01XA Contusion of right knee, initial encounter (principal); W19.XXXA Unspecified fall, initial encounter; M17.11 Unilateral primary osteoarthritis, right knee
CPT/HCPCS: 73700; 96372; 99284; J1885

== ENCOUNTER 2024-03-28 18:07 | Emergency (ER) | payer MEDICARE, SELFPAY ==
[2024-03-28 17:49] VITALS: BP 154/98; PULSE 95; RESP 18; TEMP 36.8; O2SAT 94
--- NOTE | 2024-03-28 17:55 | XRR_ITS ---
PROCEDURE INFORMATION: Exam: XR Left Foot Exam date and time: 03/28/2024 5:59 PM Age: 63 years old Clinical indication: Other: Infection; Additional info: Foot infection TECHNIQUE: Imaging protocol: Radiologic exam of the left foot. Views: 3 or more views. COMPARISON: No relevant prior studies available. FINDINGS: Bones/joints: No acute fracture or dislocation. Diffuse osseous demineralization. Soft tissues: Mild soft tissue swelling along the dorsum of the foot. There appears to be mild soft tissue ulceration along the distal aspect of the great toe. XR/XR foot LT min 3V* [id number] IMPRESSION: 1. No acute osseous findings. 2. Possible soft tissue ulceration along the distal aspect of the great toe. No definite acute osteomyelitis, though this could be further assessed with MRI if warranted.
[2024-03-28 18:39] LABS: Basophils % 0.6 %; Eosinophils # 0.1 10^3/uL (0.0-0.8); Hematocrit 41.1 % (37-53); Lymphocytes # 1.2 10^3/uL (0.8-4.8); Lymphocytes % 19.8 %; Mean Corpuscular HGB Conc 34.8 g/dL (30-55); Mean Corpuscular Hemoglobin 30.2 pg (27-33); Mean Corpuscular Volume 86.9 fl (82-101); Mean Platelet Volume 7.9 fL (7.4-10.4); Monocytes # 0.7 10^3/uL (0.2-0.9); Monocytes % 10.9 %; Neutrophils # 4.22 10^3/uL (1.8-7.7); Neutrophils % 67.4 %; Nucleated Red Blood Cells % 0 %; Platelet Count 296 10^3/cmm (157-399); Red Blood Count 4.73 10^6/uL (3.85-5.65); Red Cell Distribution Width 13.6 % (12.1-15.1); White Blood Count 6.26 10^3/uL (3.29-11.43)
[2024-03-28 18:40] LABS: Erythrocyte Sedimentation Rate 61 mm/hr (0-10)
[2024-03-28 18:41] VITALS: BP 153/97; PULSE 90; O2SAT 93
[2024-03-28 18:58] LABS: Alanine Aminotransferase 18 U/L (0-41); Albumin Level 3.6 g/dL (3.5-5.2); Alkaline Phosphatase 108 U/L (40-130); Anion Gap 12.8 (5-19); Aspartate Amino Transferase 27 U/L (0-40); Blood Urea Nitrogen 9 mg/dL (8-23); Calcium 8.7 mg/dL (8.5-10.5); Carbon Dioxide 27 mmol/L (22-29); Chloride 91 mmol/L (98-107); Globulin 3.9 g/dL (1.3-4.6); Glomerular Filtration Rate 136.1 mL/min (90-130); Glucose 146 mg/dL (65-115); Osmolality Calculated 263 mOsm/kg (285-295); Potassium 4.8 mmol/L (3.5-5.1); Sodium 126 mmol/L (136-145); Total Bilirubin 0.5 mg/dL (0.15-1.2); Total Protein 7.5 g/dL (6.6-8.7)
--- NOTE | 2024-03-28 18:58 | W.ED.EXTPRO ---
HPI - Extremity Problem General: Chief complaint: Extremity Problem,Nontraumatic Stated complaint: leg swelling History of Present Illness: 63-year-old male presents emergency room with pain in his left foot. He says he caught it underneath a refrigerator door a few days ago and has been treating it with homemade remedies. His pain is gotten worse. There is a wound on the top of his foot and on his left toe. No obvious streaking up his leg. He has some venous stasis dermatitis on both feet that is chronic. No diabetes. No fevers Related Data Home Medications Medication Instructions Recorded Confirmed acetaminophen 500 mg tablet 500 mg PO Q6H PRN Pain 07/17/20 12/27/22 (Tylenol Extra Strength) docusate sodium 100 mg capsule 100 mg PO BID 07/17/20 12/27/22 (Colace) Previous Rx's Medication Instructions Recorded naproxen sodium 375 mg 375 mg PO .Twice daily #20 tabs 08/14/22 tablet,extended release 24 hr mphase lisinopril 10 mg tablet 10 mg PO DAILY #30 tabs 12/27/22 cephalexin 500 mg tablet 500 mg PO TID 10 days #30 tabs 03/28/24 hydrocodone 5 mg-acetaminophen 325 1 tab PO Q6H PRN pain #20 tabs 03/28/24 mg tablet polyethylene glycol 3350 17 17 g PO DAILY #510 grams 03/28/24 gram/dose oral powder (Miralax) Allergies Allergy/AdvReac Type Severity Reaction Status Date / Time No Known Allergies Allergy Verified 12/27/22 14:46 Review of Systems Narrative: Constitutional symptoms: Negative except as documented in HPI. Skin symptoms: Negative except as documented in HPI. Eye symptoms: Negative except as documented in HPI. ENMT symptoms: Negative except as documented in HPI. Respiratory symptoms: Negative except as documented in HPI. Cardiovascular symptoms: Negative except as documented in HPI. Gastrointestinal symptoms: Negative except as documented in HPI. Genitourinary symptoms: Negative except as documented in HPI. Musculoskeletal symptoms: Negative except as documented in HPI. Neurologic symptoms: Negative except as documented in HPI. Psychiatric symptoms: Negative except as documented in HPI. Endocrine symptoms: Negative except as documented in HPI. [facility] [place] ED PFSH: Medical History BPH loc w urin obs/LUTS Constipation Repeat screening colonoscopy in 10 years COPD (chronic obstructive pulmonary disease) Hx pulmonary embolism Hypertension resolved. Neuropathy Urolithiasis Passed a stone (probable prostatic) October 2019. No other stone seen on recent CT scan Surgical History Status post colonoscopy Status post left inguinal hernia repair Status post left inguinal hernia repair (07/29/20) Recurrent Status post right inguinal hernia repair Family History Father Cancer Social History Smoking and tobacco/nicotine status: current every day tobacco/nicotine user Alcohol intake: former Substance/Drug Use: unknown Adopted: No Caregiver/support person: No Lives independently: No Household members: significant other Marital status: Life Partner Current occupational status: employed Physical Exam Narrative: EXAM NARRATIVE: General: Alert, no acute distress. Skin: warm and dry Head: Normocephalic Neck: Trachea midline Eye: Extraocular movements are intact. Ears, nose, mouth and throat: Oral mucosa moist Respiratory: Respirations are non-labored Musculoskeletal: Normal ROM, no obvious deformities. There is a old cut/wound on the left fourth digit. Also a wound on the top of the foot. Neurological: Alert and oriented, No focal neurological deficit observed. Psychiatric: Cooperative, appropriate mood & affect. Course Vital Signs: Vital signs: Vital Signs Temperature 98.2 F 03/28/24 17:49 Pulse Rate 117 H 03/28/24 19:45 Respiratory Rate 22 H 03/28/24 19:45 Blood Pressure 144/111 03/28/24 19:45 Pulse Oximetry 92 03/28/24 19:45 Oxygen Delivery Me thod Room Air 03/28/24 19:45 MDM - Extremity (Nontraumatic) Medical Decision Making Medical decision making: Differential diagnosis including but not limited to and based on the above HPI, review of systems and physical exam: N/A patient with an foot wound: Cellulitis. abscess. osteomyelitis. fracture. Orders placed to evaluate differential diagnosis based on the above differential, HPI and physical exam X-ray of the left foot: No acute fractures or dislocations. This was reviewed and interpreted by myself the emergency room physician. I also reviewed the radiology report. Lab Review: Laboratory results were reviewed and interpreted by myself the emergency room physician. No leukocytosis. No anemia. No renal failure. Sodium is a little low at 126. He is chronically low and asymptomatic at this time. I reviewed the patient's medical record. Reexamination: Patient remained stable. No increased work of breathing. No altered mental status. No focal motor deficits. Consultation: I spoke with Dr. Voss who is on-call for podiatry. He reviewed images of the wounds and x-rays and lab work. He will see the patient in the clinic tomorrow at 10 AM. Assessment and plan: Foot wound Possible early cellulitis ?IV cefepime in the emergency room. P.o. Minford. - Discharged home - Discussed plan with patient. Answered any questions. - Evaluation and treatment of this problem were appropriate in the emergency setting. Lab Data 03/28/24 18:24 03/28/24 18:24 Radiology Impressions Foot X-Ray 03/28/24 17:55 IMPRESSION: 1. No acute osseous findings. 2. Possible soft tissue ulceration along the distal aspect of the great toe. No definite acute osteomyelitis, though this could be further assessed with MRI if warranted. Laboratory Results WBC 6.26 10^3/uL (3.29-11.43) 03/28/24 18:24 RBC 4.73 10^6/uL (3.85-5.65) 03/28/24 18:24 Hgb 14.30 g/dL (11.27-16.99) 03/28/24 18:24 Hct 41.1 % (37-53) 03/28/24 18:24 MCV 86.9 fl (82-101) 03/28/24 18:24 MCH 30.2 pg (27-33) 03/28/24 18:24 MCHC 34.8 g/dL (30-55) 03/28/24 18:24 RDW 13.6 % (12.1-15.1) 03/28/24 18:24 Plt Count 296 10^3/cmm (157-399) 03/28/24 18:24 MPV 7.9 fL (7.4-10.4) 03/28/24 18:24 Neut % (Auto) 67.4 % 03/28/24 18:24 Lymph % (Auto) 19.8 % 03/28/24 18:24 [place] % (Auto) 10.9 % 03/28/24 18:24 Eos % (Auto) 1.0 % 03/28/24 18:24 Baso % (Auto) 0.6 % 03/28/24 18:24 Neut # (Auto) 4.22 10^3/uL (1.8-7.7) 03/28/24 18:24 Lymph # (Auto) 1.2 10^3/uL (0.8-4.8) 03/28/24 18:24 [place] # (Auto) 0.7 10^3/uL (0.2-0.9) 03/28/24 18:24 Eos # (Auto) 0.1 10^3/uL (0.0-0.8) 03/28/24 18:24 Baso # (Auto) 0.0 10^3/uL (0.0-0.1) 03/28/24 18:24 Nucleated RBC % (auto) 0 % 03/28/24 18: Nucleated RBCs # 0.0 /100WBC 03/28/24 18:24 ESR 61 mm/hr (0-10) H 03/28/24 18:24 Sodium 126 mmol/L (136-145) L 03/28/24 18:24 Potassium 4.8 mmol/L (3.5-5.1) 03/28/24 18:24 Chloride 91 mmol/L (98-107) L 03/28/24 18:24 Carbon Dioxide 27 mmol/L (22-29) 03/28/24 18:24 Anion Gap 12.8 (5-19) 03/28/24 18:24 BUN 9 mg/dL (8-23) 03/28/24 18:24 Creatinine 0.6 mg/dL (0.7-1.2) L 03/28/24 18:24 GFR Calculation 136.1 mL/min (90-130) H 03/28/24 18:24 Glucose 146 mg/dL (65-115) H 03/28/24 18:24 Calculated Osmolality 263 mOsm/kg (285-295) L 03/28/24 18:24 Lactic Acid 1.1 mmol/L (0.5-2.2) 03/28/24 18:24 Calcium 8.7 mg/dL (8.5-10.5) 03/28/24 18:24 Total Bilirubin 0.5 mg/dL (0.15-1.2) 03/28/24 18:24 AST 27 U/L (0-40) 03/28/24 18:24 ALT 18 U/L (0-41) 03/28/24 18:24 Alkaline Phosphatase 108 U/L (40-130) 03/28/24 18:24 C-Reactive Protein 9.0 mg/L (0.0-4.9) H 03/28/24 18:24 Total Protein 7.5 g/dL (6.6-8.7) 03/28/24 18:24 Albumin 3.6 g/dL (3.5-5.2) 03/28/24 18:24 Globulin 3.9 g/dL (1.3-4.6) 03/28/24 18:24 All radiology interpretation(s) finalized by discharge Discharge Plan Discharge Patient Disposition: Home Clinical Impression: Wound of foot Condition: Stable Prescriptions: New cephalexin 500 mg tablet 500 mg PO TID 10 Days Qty: 30 0RF hydrocodone-acetaminophen 5-325 mg tablet 1 tab PO Q6H PRN (Reason: pain) Qty: 20 0RF polyethylene glycol 3350 [Miralax] 17 gram/dose powder 17 g PO DAILY Qty: 510 0RF Rx Instructions: Take 1 scoop daily while taking pain medications. No Action acetaminophen [Tylenol Extra Strength] 500 mg tablet 500 mg PO Q6H PRN (Reason: Pain) docusate sodium [Colace] 100 mg capsule 100 mg PO BID lisinopril 10 mg tablet 10 mg PO DAILY Qty: 30 0RF naproxen sodium 375 mg tablet, ER multiphase 24 hr 375 mg PO .Twice daily Qty: 20 0RF Discharge Orders: Discharge ED (Routine); Ordered 03/28/24 Ordered By: Tarsha Christopher Referrals: Stella Douglas FNP [Primary Care Provider] - Emil Voss DPM [Physician] - 03/29/24 10:00 am Discharge Diet: Usual diet Discharge Activity: Increase activity as tolerated Patient Instructions: Opioid Safety, Pain Management, Wound Care (General) Activity Restrictions/Additional Instructions: Thank you for choosing [facility] for your healthcare needs today. Please realize this is an emergency room and that we are providing you with a medical screening exam and this may not be complete and all inclusive of all the testing and or work up that you may need to determine your ailment or severity of your illness. You have been screened and evaluated and felt safe for discharge. Health conditions do change or evolve sometimes and as such it is important that you follow up with your Primary Doctor to be re checked, 3-5 days is a general good time frame for follow up. You are always welcome to return to the ED for re assessment if your symptoms are worsening or you have new concerns Coding Level of Care Code ED Film Processing Supervisor for Jie Zhou
[2024-03-28 18:59] LABS: Lactic Sepsis W/Reflex 1.1 mmol/L (0.5-2.2)
[2024-03-28 19:00] VITALS: BP 159/105; PULSE 97; O2SAT 94
[2024-03-28] MEDS: HYDROcodone-acetaminophen 10-325 mg Tablet 1 TAB PO (19:42)
[2024-03-28] MEDS: cefepime 2,000 mg SDV 2000 MG IVP (19:43)
[2024-03-28 19:45] VITALS: BP 144/111; PULSE 117; RESP 22; O2SAT 92
[2024-03-28 21:00] VITALS: PULSE 112; RESP 20; O2SAT 93
[2024-03-28] MEDS: HYDROcodone-acetaminophen 5-325 mg Tablet 1 TAB PO (21:29)
[2024-03-28 21:41] VITALS: BP 130/95; PULSE 118; O2SAT 92
== END 2024-03-28 21:42 | disposition home or self-care (01) ==
PROVIDERS: Emergency Provider Emergency Medicine; PCP Nurse Practitioner Family
DX: S99.922A Unspecified injury of left foot, initial encounter (principal); X58.XXXA Exposure to other specified factors, initial encounter; Z72.0 Tobacco use; J44.9 Chronic obstructive pulmonary disease, unspecified; I10 Essential (primary) hypertension
CPT/HCPCS: 36415; 73630; 80053; 83605; 85025; 85651; 86140; 87040; 96374; 99284; J0692

== ENCOUNTER → 2024-03-29 10:30 | Outpatient (BNVA) | payer MEDICARE, SELFPAY | PROVIDERS: PCP Nurse Practitioner Family; Visit Provider Podiatrist Foot & Ankle Surgery | DX: I73.9 Peripheral vascular disease, unspecified (principal); L97.522 Non-pressure chronic ulcer of other part of left foot with fat layer exposed; L60.3 Nail dystrophy; L03.116 Cellulitis of left lower limb | CPT/HCPCS: 11042; 11721; 99203 ==

== ENCOUNTER → 2024-04-03 09:43 | Outpatient (BNVA) | payer MEDICARE, SELFPAY | PROVIDERS: PCP Nurse Practitioner Family; Visit Provider Podiatrist Foot & Ankle Surgery | DX: I73.9 Peripheral vascular disease, unspecified (principal); L03.116 Cellulitis of left lower limb; L97.522 Non-pressure chronic ulcer of other part of left foot with fat layer exposed; R26.81 Unsteadiness on feet; Z91.81 History of falling; R29.898 Other symptoms and signs involving the musculoskeletal system | CPT/HCPCS: 99213 ==